=== PATIENT | female | born 1990 ===

== ENCOUNTER 2017-03-18 12:34 | Emergency (ER) | payer OTHER ==
[2017-03-18 14:58] VITALS: BP 117/76
[2017-03-18] MEDS ORDERED: Acetaminophen TAB* 325 MG PO ONE (15:12)
--- NOTE | 2017-03-18 15:24 | UC ---
Throat Pain/Nasal Haroldo HPI - History of Current Complaint Chief Complaint: UCRespiratory Stated Complaint: FEVER, SORE THROAT Time Seen by Provider: 03/18/17 15:12 Hx Last Menstrual Period: 03/12/17 Pain Intensity: 10 - Allergies/Home Medications Allergies/Adverse Reactions: Allergies Allergy/AdvReac Type Severity Reaction Status Date / Time No Known Allergies Allergy Verified 03/18/17 14:58 Home Medications: Home Medications Omeprazole [Prilosec] 20 mg PO DAILY 03/18/17 [History Confirmed 03/18/17] PMH/Surg Hx/FS Hx/Imm Hx - Surgical History Surgical History: None - Social History Alcohol Use: None Substance Use Type: None Smoking Status (MU): Never Smoked Tobacco Physical Exam Vital Signs: Initial Vital Signs Temp 102.2 F 03/18/17 14:52 Pulse 114 03/18/17 14:52 Resp 18 03/18/17 14:52 BP 117/76 03/18/17 14:52 Pulse Ox 100 03/18/17 14:52 Discharge - Discharge Plan Referrals: No Primary Care Phys,NOPCP [Primary Care Provider] -
--- NOTE | 2017-03-18 15:56 | UC ---
Manoj Gonzáles Julia, scribed for Quan Evans MD on 03/18/17 at 1531 . Throat Pain/Nasal Haroldo HPI - HPI Summary HPI Summary: This patient is a 27 year old F presenting to [facility] with a chief complaint of fever since yesterday. Patient reports sore throat headache, body aches, intermittent nausea, and ear pain for the past few days. The patient rates the pain 10/10 in severity. Pt has taken Acetaminophen for her symptoms. - History of Current Complaint Chief Complaint: UCRespiratory Stated Complaint: FEVER, SORE THROAT Time Seen by Provider: 03/18/17 15:12 Hx Obtained From: Patient Hx Last Menstrual Period: 03/12/17 Onset/Duration: Lasting Days Pain Intensity: 10 Pain Scale Used: 0-10 Numeric Cough: Nonproductive Associated Signs & Symptoms: Positive: Other - sore throat headache, body aches , intermittent nausea, and ear pain - Allergies/Home Medications Allergies/Adverse Reactions: Allergies Allergy/AdvReac Type Severity Reaction Status Date / Time No Known Allergies Allergy Verified 03/18/17 14:58 Home Medications: Home Medications Omeprazole [Prilosec] 20 mg PO DAILY 03/18/17 [History Confirmed 03/18/17] PMH/Surg Hx/FS Hx/Imm Hx Other GI/ History: gastritis - Surgical History Surgical History: None - Family History Known Family History: Positive: Hypertension, Other - colon ca - Social History Occupation: Student Alcohol Use: None Substance Use Type: None Smoking Status (MU): Never Smoked Tobacco Review of Systems Constitutional: Fever, Other - body aches ENT: Ear Ache Gastrointestinal: Nausea All Other Systems Reviewed And Are Negative: Yes Physical Exam Triage Information Reviewed: Yes Vital Signs: Initial Vital Signs Temp 102.2 F 03/18/17 14:52 Pulse 114 03/18/17 14:52 Resp 18 03/18/17 14:52 BP 117/76 03/18/17 14:52 Pulse Ox 100 03/18/17 14:52 Vital Signs Reviewed: Yes - Additional Comments General: mild appearance, no pain distress Skin: warm, color reflects adequate perfusion, dry Head: normal Eyes: EOMI, JAZIEL ENT: mild erythema of posterior pharynx Neck: supple, nontender Respiratory: CTA, breath sounds present Cardiovascular: Regular rhythm, tachycardia rate Abdomen: soft, nontender Bowel: present Musculoskeletal: normal, strength/ROM intact Neurological: normal, sensory/motor intact, A&O x3 Psychological: affect/mood appropriate Throat Pain/Nasal Course/Dx - Differential Dx/Diagnosis Provider Diagnoses: INFLUENZA Discharge - Discharge Plan Condition: Stable Disposition: HOME Prescriptions: Oseltamivir CAP* [Tamiflu CAP*] 75 mg PO BID #10 cap Patient Education Materials: Acetaminophen (By mouth), Influenza (ED) Referrals: [facility] [Provider Group] Additional Instructions: FOLLOW UP WITH [facility]. GET RECHECKED FOR ANY WORSENING OF YOUR CONDITION OR QUESTIONS OR CONCERNS. The documentation as recorded by the Manoj flaherty Julia accurately reflects the service I personally performed and the decisions made by me, Quan Evans MD.
== END 2017-03-18 16:15 | disposition home or self-care (01) ==
LOC: UCEAST 12:34
DX: J11.1 Influenza due to unidentified influenza virus with other respiratory manifestations (principal); K29.70 Gastritis, unspecified, without bleeding
CPT/HCPCS: 87651; 99212; A9270-GY; G0463